=== PATIENT | female | born 1990 | race Caucasian/White ===

== ENCOUNTER 2016-08-25 09:00 | Emergency (ER) | payer OTHER ==
[2016-08-25 09:20] VITALS: BP 114/64
--- NOTE | 2016-08-25 09:22 | UC ---
Respiratory Complaint HPI - HPI Summary HPI Summary: Sore throat, right ear pain, bronchial congestion and cough, no fever - History of Current Complaint Chief Complaint: UCRespiratory Stated Complaint: URI Time Seen by Provider: 08/25/16 09:14 Hx Obtained From: Patient Hx Last Menstrual Period: 04/03/15 ?: No Onset/Duration: Gradual Onset, Lasting Days - 7, Still Present Timing: Constant Severity Initially: Mild Severity Currently: Moderate Pain Intensity: 4 Pain Scale Used: 0-10 Numeric Character: Cough: Nonproductive Aggravating Factors: Nothing Alleviating Factors: Nothing Associated Signs And Symptoms: Positive: Pleuritic Chest Pain, URI - Allergies/Home Medications Allergies/Adverse Reactions: Allergies Allergy/AdvReac Type Severity Reaction Status Date / Time No Known Allergies Allergy Verified 08/25/16 09:14 PMH/Surg Hx/FS Hx/Imm Hx Previously Healthy: No Endocrine History Of: Denies: Diabetes, Thyroid Disease Cardiovascular History Of: Denies: Cardiac Disorders, Hypertension, Congestive Heart Failure Respiratory History Of: Denies: COPD, Asthma GI/ History Of: Reports: Gall Bladder Disease - Recent dx of Gall Stones Denies: Ulcer, Renal Disease Psychological History Of: Reports: Anxiety, Depression - Post - Surgical History Surgical History: Yes Surgery Procedure, Year, and Place: 1 , tubal ligation - Family History Family History: no reported cardio vascular issues in family lineage - Social History Occupation: Employed Full-time Lives: With Family Alcohol Use: Occasionally Alcohol Amount: Wine Substance Use Type: None Smoking Status (MU): Never Smoked Tobacco Type: Cigarettes Amount Used/How Often: weekends Length of Time of Smoking/Using Tobacco: 5 yrs - Immunization History Most Recent Influenza Vaccination: 2013 Most Recent Tetanus Shot: 2010 Most Recent Pneumonia Vaccination: never Review of Systems Constitutional: Negative Skin: Negative Eyes: Negative ENT: Sore Throat, Ear Ache Respiratory: Cough Cardiovascular: Negative Gastrointestinal: Negative Genitourinary: Negative Motor: Negative Neurovascular: Negative Musculoskeletal: Negative Neurological: Negative Psychological: Negative All Other Systems Reviewed And Are Negative: Yes Physical Exam Triage Information Reviewed: Yes Appearance: Well-Appearing, No Pain Distress, Well-Nourished Vital Signs Reviewed: Yes Eye Exam: Normal Eyes: Positive: Conjunctiva Clear ENT Exam: Normal ENT: Positive: Normal ENT inspection, Hearing grossly normal, Pharyngeal erythema, TMs normal. Negative: Nasal congestion, Nasal drainage, Tonsillar swelling, Tonsillar exudate, Trismus, Muffled/hoarse voice Dental Exam: Normal Neck exam: Normal Neck: Positive: Supple, Nontender, No Lymphadenopathy Respiratory Exam: Normal Respiratory: Positive: Chest non-tender, Lungs clear, Normal breath sounds, No respiratory distress, No accessory muscle use Cardiovascular Exam: Normal Cardiovascular: Positive: RRR, No Murmur, Pulses Normal, Brisk Capillary Refill Musculoskeletal Exam: Normal Musculoskeletal: Positive: Strength Intact, ROM Intact, No Edema Neurological Exam: Normal Neurological: Positive: Alert, Muscle Tone Normal Psychological Exam: Normal Skin Exam: Normal UC Diagnostic Evaluation - Laboratory Diagnostic Studies Comment: RST(-) Respiratory Course/Dx - Course Course Of Treatment: zithromax, albuterol, mucinex d , increase fluids, follow with pcp to re-check as needed - Differential Dx/Diagnosis Differential Diagnosis/HQI/PQRI: Bronchitis, Exacerbation Of COPD, Influenza, Lower Resp Infection, Sinusitis Provider Diagnoses: Bronchitis Discharge - Discharge Plan Condition: Stable Disposition: HOME Prescriptions: Albuterol HFA INHALER* [Ventolin HFA Inhaler*] 2 puff INH Q4H PRN #1 mdi PRN Reason: cough/bronchial congestion Azithromycin TAB* [Zithromax TAB (Z-JEREMY) 250 mg #6 tabs] 2 tab PO .TODAY, THEN 1 DAILY #1 jeremy Patient Education Materials: Decongestant/Expectorant (By mouth), How to Use a Metered-Dose Inhaler (ED), Acute Bronchitis (ED) Referrals: Stanislav Friedman MD [Primary Care Provider] - If Needed
== END 2016-08-25 09:52 | disposition home or self-care (01) ==
LOC: UCEAST 09:00
DX: J40 Bronchitis, not specified as acute or chronic (principal); F17.210 Nicotine dependence, cigarettes, uncomplicated
CPT/HCPCS: 87651; 99212; G0463

== ENCOUNTER 2016-12-13 21:14 | Emergency (ER) | payer OTHER ==
[2016-12-13 21:21] VITALS: BP 113/80
--- NOTE | 2016-12-13 22:19 | RAD ---
HISTORY: Left forearm pain and swelling, trauma COMPARISONS: None VIEWS: 2, Frontal and lateral views of the left forearm FINDINGS: BONE DENSITY: Normal. BONES: There is no displaced fracture. JOINTS: There is no arthropathy. ALIGNMENT: There is no dislocation. SOFT TISSUES: Unremarkable. OTHER FINDINGS: None. IMPRESSION: NO ACUTE OSSEOUS INJURY. IF SYMPTOMS PERSIST, RECOMMEND REPEAT IMAGING.
--- NOTE | 2016-12-13 22:19 | RAD ---
HISTORY: Left wrist pain and swelling, trauma COMPARISONS: None VIEWS: 3, Frontal, lateral, and oblique views of the left wrist FINDINGS: BONE DENSITY: Normal. BONES: There is no displaced fracture. JOINTS: There is no arthropathy. ALIGNMENT: There is no dislocation. SOFT TISSUES: Unremarkable. OTHER FINDINGS: None. IMPRESSION: NO ACUTE OSSEOUS INJURY. IF SYMPTOMS PERSIST, RECOMMEND REPEAT IMAGING.
--- NOTE | 2016-12-13 22:20 | RAD ---
HISTORY: Left hand pain and swelling, trauma COMPARISONS: August 10, 2008 VIEWS: 4, Frontal, lateral, and oblique views of the left hand FINDINGS: BONE DENSITY: Normal. BONES: There is no displaced fracture. JOINTS: There is no arthropathy. ALIGNMENT: There is no dislocation. SOFT TISSUES: Unremarkable. OTHER FINDINGS: None. IMPRESSION: NO ACUTE OSSEOUS INJURY. IF SYMPTOMS PERSIST, RECOMMEND REPEAT IMAGING.
[2016-12-13] MEDS ORDERED: HYDROcodone/ACETAMIN 5-325 MG* 1 TAB PO ONE (22:31)
--- NOTE | 2017-01-07 13:06 | UC ---
I, Edmundo,Tai, scribed for Yaneth Gipson MD on 12/13/16 at 2228 . Upper Extremity HPI - HPI Summary HPI Summary: This 26 y/o female presents to [facility] for LUE pain since 1830 PM. Pt was playing soft ball at the time of onset when a line drive ball impacted into her LUE wrist/distal radius. Positive tingling at all five digits of LUE. Negative focal weakness. Movement makes pain worse, but pt is able to extend her wrist and arm. Pt is left handed. 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 X-ray imaging results are shared with pt. Plan of care involving pain control with NSAID and outpatient f/u with orthopaedist is discussed with pt. Pt at this moment refuses work note. - History of Current Complaint Chief Complaint: UCUpperExtremity Stated Complaint: ARM INJURY Time Seen by Provider: 12/13/16 21:46 Hx Obtained From: Patient, Medical Records Hx Last Menstrual Period: 11/29/16 ?: No Onset/Duration: Sudden Onset, Still Present Location Of Pain: Is Discrete @ - LUE wrist/distal radius Character: Throbbing, Spasmodic Aggravating Factor(s): Movement Alleviating Factor(s): Rest Associated Signs And Symptoms: Positive: Swelling, Numbness/Tingling - LUE tingling - Allergies/Home Medications Allergies/Adverse Reactions: Allergies Allergy/AdvReac Type Severity Reaction Status Date / Time No Known Allergies Allergy Verified 12/13/16 21:21 PMH/Surg Hx/FS Hx/Imm Hx GI/ History: Other - gall stone Other GI/ History: Gall stone - Surgical History Surgical History: Yes Surgery Procedure, Year, and Place: 1 , tubal ligation - Family History Known Family History: Negative: Cardiac Disease Family History: no reported cardio vascular issues in family lineage - Social History Alcohol Use: Occasionally Alcohol Amount: Wine Substance Use Type: None Smoking Status (MU): Never Smoked Tobacco Type: Cigarettes Amount Used/How Often: weekends Length of Time of Smoking/Using Tobacco: 5 yrs - Immunization History Most Recent Influenza Vaccination: 2013 Most Recent Tetanus Shot: 2010 Most Recent Pneumonia Vaccination: never Review of Systems Constitutional: Negative Skin: Negative Eyes: Negative ENT: Negative Respiratory: Negative Cardiovascular: Negative Gastrointestinal: Negative Genitourinary: Negative Motor: Negative Neurovascular: Negative Musculoskeletal: Negative, Other: - LUE pain Neurological: Paresthesia - tingling at LUE all five digits All Other Systems Reviewed And Are Negative: Yes Physical Exam Triage Information Reviewed: Yes Appearance: Well-Nourished Vital Signs: Initial Vital Signs Temp 99.4 F 12/13/16 21:17 Pulse 85 12/13/16 21:17 Resp 20 12/13/16 21:17 BP 113/80 12/13/16 21:17 Pulse Ox 98 12/13/16 21:17 Vital Signs Reviewed: Yes Eye Exam: Normal ENT Exam: Normal Neck exam: Normal Neck: Positive: Nontender - Negative meningismus Respiratory: Positive: No respiratory distress, No accessory muscle use, Respiratory distress Cardiovascular: Positive: RRR, Pulses Normal, Brisk Capillary Refill - intact pulse at LUE distal radial and tips of her LUE fingers Abdominal Exam: Other - no complaints Musculoskeletal: Positive: ROM Intact - c/o pain as above. Diffuse, w/o point bony tenderness. + tingling (dysesthesia) x 5 digits. CR good. R/ U 2+. Distal color good.. Negative: ROM Limited @ - pt is able to extand her arm and wrist. Able to Neurological Exam: Normal - Intact sensation at left axillary, LUE digits x5, and LUE hand Neurological: Positive: Muscle Tone Normal Psychological: Positive: Age Appropriate Behavior Skin: Positive: Other - left distal arm/wrist contusion. Diagnostics - Radiology LUE hand Xray Interpretation: No Acute Changes Radiology Interpretation Completed By: Radiologist LUE wrist Xray Interpretation: No Acute Changes Radiology Interpretation Completed By: Radiologist Forearm Xray Interpretation: No Acute Changes Radiology Interpretation Completed By: Radiologist Upper Extremity Course/Dx - Course Course Of Treatment: no new problems in CCC. Splint as needed for comfort. Ibuprofen - at least the next 3 days as needed for inflammation. Declines work note. D/w coa / f/u with pt. See avs. Questions answered to the best of my ability. - Differential Dx/Diagnosis Provider Diagnoses: Acute left wrist injury, with dysesthesia Discharge - Discharge Plan Condition: Stable Disposition: HOME Prescriptions: Ibuprofen TAB* [Motrin TAB* 600 MG] 600 mg PO Q6H PRN #30 tab PRN Reason: Pain Patient Education Materials: Ibuprofen (By mouth), Wrist Injury (ED), Peripheral Neuropathy (ED), Contusion in Adults (ED) Referrals: Garett Caldwell MD [Medical Doctor] - 2 Days Additional Instructions: Please follow up with your primary care provider per routine. Please seek medical attention for worsening problems in the meantime. Splint as needed for comfort. The documentation as recorded by the londonibeEdmundo Soohyun accurately reflects the service I personally performed and the decisions made by me, Yaneth Gipson MD.
== END 2016-12-13 22:57 | disposition home or self-care (01) ==
LOC: UCEAST 21:14
DX: S69.92XA Unspecified injury of left wrist, hand and finger(s), initial encounter (principal); W21.07XA Struck by softball, initial encounter; Y93.64 Activity, baseball; Y92.9 Unspecified place or not applicable; R20.8 Other disturbances of skin sensation; K80.80 Other cholelithiasis without obstruction; Z72.0 Tobacco use
CPT/HCPCS: 99213; G0463

== ENCOUNTER 2018-06-18 05:55 | Day surgery (SDC) | payer OTHER ==
[~2018-06-18 05:55] MED LIST: Buffered Lidocaine 0.9% SYRIN* 5 ML/SYR SYRINGE INTRADERM ONE
[2018-06-18] MEDS ORDERED: Lactated Ringers 1000 ML Bag* 1,000 ML IV SCH (06:00)
[2018-06-18] MEDS ORDERED: Famotidine IV* 10 MG/ML 2 ML (20 mg) IV ONE (06:00)
[2018-06-18] MEDS ORDERED: ceFAZolin 2 GM PREMIX in ORs 2 GM/50 ML BAG IVPB ONE (06:44)
[2018-06-18] MEDS ORDERED: Famotidine IV* 10 MG/ML 2 ML (20 mg) ONE (06:44)
[2018-06-18] MEDS ORDERED: Bupivacaine 0.25% EPI 200,000* 30 ML SDV ONE (07:03)
[2018-06-18] MEDS ORDERED: Dexamethasone IV* 4 MG/ML 1 ML (4 MG) ONE (07:06)
[2018-06-18] MEDS ORDERED: Propofol* 10 MG/ML 20 ML BTL ONE (07:06)
[2018-06-18] MEDS ORDERED: Ondansetron INJ* 2 MG/ML VIAL ONE (07:06)
[2018-06-18] MEDS ORDERED: Lidocaine 2% PF * 5 ML VIAL ONE (07:06)
[2018-06-18] MEDS ORDERED: Ketorolac INJ* 30 MG/ML 1 ML VIAL ONE (07:06)
[2018-06-18] MEDS ORDERED: Midazolam* 1 MG/ML 5 ML VIAL (5 MG) ONE (07:07)
[2018-06-18] MEDS ORDERED: fentaNYL* 50 MCG/ML 2 ML VIAL (100 MCG VIAL) ONE (07:07)
[2018-06-18] MEDS ORDERED: Cisatracurium* 2 MG/ML MDV 5 ML ONE (07:07)
[2018-06-18] MEDS ORDERED: EPHEDrine (Pressors)* 50 MG/ML VIAL ONE (07:46)
[2018-06-18] MEDS ORDERED: Acetaminophen IV 1GM/100ML * 1,000 MG/100 ML VIAL IVPB ONE (08:03)
[2018-06-18] MEDS ORDERED: fentaNYL* 50 MCG/ML 2 ML VIAL (100 MCG VIAL) IV PRN (08:03)
[2018-06-18] MEDS ORDERED: Ondansetron INJ* 2 MG/ML VIAL IV PRN (08:03)
[2018-06-18] MEDS ORDERED: Naloxone* 0.4 MG/ML 1 ML VIAL IV PRN (08:03)
[2018-06-18] MEDS ORDERED: oxyCODONE TAB* 5 MG TAB PO PRN (08:03)
[2018-06-18] MEDS ORDERED: Glycopyrrolate IV* 0.2 MG/ML 1 ML VIAL ONE (08:14)
[2018-06-18] MEDS ORDERED: Neostigmine Methylsulfate* 1 MG/ML 10 ML VIAL (1 mg/ml) ONE (08:14)
--- NOTE | 2018-06-18 08:19 | OP ---
Operative Report - Blank - Operative Report Date of Operation: 06/18/18 Note: Brief Operative Note Preop Dx: symptomatic cholelithiasis Postop Dx: same Procedure: laparoscopic cholecystectomy Anesthesia: GET Surgeon: Brie Button Facing Machine Operator: VINAY Tirado Fluids: 1300 ml RL EBL: < 20 ml Specimen: gallbladder Drains: none Findings: dictated
[2018-06-18] MEDS ORDERED: Acetaminophen IV 1GM/100ML * 100 ML ONE (09:09)
[2018-06-18 09:48] VITALS: BP 112/75
--- NOTE | 2018-06-18 11:56 | OP ---
CC: Leopoldo Baird M.D.; Dr. Friedman OPERATIVE REPORT: DATE OF OPERATION: 06/18/18 DATE OF : 89 SURGEON: Leopoldo Baird M.D. DEMURRAGE AGENT: VINAY Dash ANESTHESIOLOGIST: Dr. Rowell. ANESTHESIA: General anesthetic, local infiltration by the surgeon. PRE-OP DIAGNOSIS: Symptomatic cholelithiasis. POST-OP DIAGNOSIS: Symptomatic cholelithiasis. OPERATIVE PROCEDURE: Laparoscopic cholecystectomy. DESCRIPTION OF PROCEDURE: The patient was supine on the operating room table. After adequate general anesthetic, compression stockings, Lea Hugger warmer, and intravenous antibiotics, the abdomen was prepped with antiseptic and draped in a sterile fashion. Local infiltrative anesthesia was administe red. Small umbilical incision was created. Blunt port cannula was placed. Insufflation was carried with carbon dioxide. Additional cannulae, 12-mm subxiphoid and 5-mm right upper quadrant, right ant erior axillary line were made through small stab wounds under direct vision. The gallbladder was not infected. It was tented upward. Areolar tissue was taken down off with cystic duct and cystic dale ry which readily identified, and clipped and divided. The common duct was readily seen and kept out of harms way. The gallbladder was taken off the liver bed using electrocautery. There was no stone s pillage. The gallbladder was removed in a bag through the epigastric site. The operative field was irrigated with warm saline solution. Free fluid was suctioned out. Everything was in excellent condi tion. Cannulae were removed. The pneumoperitoneum was allowed to escape. The umbilical fascia was closed with 0 Vicryl and skin with 5-0 Vicryl followed by Steri-Strips. She tolerated the procedure well, was awakened, and brought to Recovery in good condition. No complications. No drains. Pathol ogic specimen was gallbladder. Sponge and instrument counts correct. Estimated blood loss 20 mL. [id number]/[facility] #: [id number]
== END 2018-06-18 10:12 | disposition home or self-care (01) ==
LOC: OR 05:55
PROVIDERS: ATTEND Surgery
DX: K80.10 Calculus of gallbladder with chronic cholecystitis without obstruction (principal)
CPT/HCPCS: 81025; 88304; J0690; J1100; J1885; J2250; J2405; J2704; J2710; J3010